=== PATIENT | male | born 1955 | race Caucasian/White ===

== ENCOUNTER 2021-02-26 09:04 | Day surgery (SDC) | payer BC ==
[~2021-02-26] VITALS: Ht 182.9 cm; Wt 88.8 kg
[~2021-02-26 09:04] MED LIST: Hytrin2 MG PO; ROSU10TA PO
--- NOTE | 2021-02-26 11:21 | NUR ---
02/26/21 1121 Medina Aguayo History, Chart, Medications and Allergies reviewed before start of procedure.PATIENT DETERMINED TO BE ASA APPROPRIATE FOR PROPOFOL SEDATION PRIOR TO START OF PROCEDURE BY .MONITOR INTACT WITH CONTINUOUS PULSE OXIMETRY AND INTERMITTENT BP.3-LEAD EKG REVIEWED WITH PHYSICIAN PRIOR TO START OF PROCEDURE.O2 VIA N/C INTACT THROUGHOUT SEDATION/PROCEDURE.
--- NOTE | 2021-02-26 11:37 | NUR ---
ALL BELONINGS RERUED TO PATIENT.Patient up to Ambulate independently. Gait steady. Discharge instructions reviewed with patient. Patient verbalizes understanding. Copy given to patient to take home. Patient States Post-Procedure ride home has been arranged. Discharged via wheelchair to private car for ride home.
== END 2021-02-26 23:19 | disposition home or self-care (01) ==
LOC: ORSCMMR 09:04 → ORD 10:00 → ORSCMMR 23:19
PROVIDERS: Internal Medicine Gastroenterology
PROC: 0DBN8ZX Excision of Sigmoid Colon, Via Natural or Artificial Opening Endoscopic, Diagnostic (ICD-10-PCS; principal; 2021-02-26 10:00)
PROC: 0DBM8ZX Excision of Descending Colon, Via Natural or Artificial Opening Endoscopic, Diagnostic (ICD-10-PCS; principal; 2021-02-26 10:00)
DX: Z86.010 Personal history of colon polyps (principal); D12.5 Benign neoplasm of sigmoid colon; D12.4 Benign neoplasm of descending colon; K64.8 Other hemorrhoids; E78.00 Pure hypercholesterolemia, unspecified; Z87.891 Personal history of nicotine dependence; Z79.899 Other long term (current) drug therapy
CPT/HCPCS: 88305; J2704; J7120

== ENCOUNTER 2024-01-27 18:54 | Inpatient (IN) | payer MEDICARE, BC ==
[~2024-01-27] VITALS: Ht 180.3 cm; Wt 94.4 kg
[2024-01-27 19:22] LABS: BASOPHILS ABSOLUTE AUTO 0.05 K/mm3 (0.00-0.23); BASOPHILS PERCENT AUTO 1 % (0-2); EOSINOPHILS PERCENT AUTO 3 % (0-6); Hematocrit 46.5 % (37.0-53.0); Hemoglobin 16.3 g/dL (13.5-17.5); IMMATURE GRAN ABSOLUTE AUTO 0.02 K/mm3 (0.00-0.10); IMMATURE GRAN PERCENT AUTO 0 % (0-1); LYMPHOCYTES ABSOLUTE AUTO 1.43 K/mm3 (0.84-5.20); LYMPHOCYTES PERCENT AUTO 24 % (21-46); MONOCYTES ABSOLUTE AUTO 0.48 K/mm3 (0.16-1.47); MONOCYTES PERCENT AUTO 8 % (4-13); Mean Corpuscular HGB 32.7 pg (26.0-34.0); Mean Corpuscular HGB Conc 35.1 g/dL (31.5-36.5); Mean Corpuscular Volume 93 fL (80-100); NEUTROPHILS ABSOLUTE AUTO 3.68 K/mm3 (1.96-9.15); NEUTROPHILS PERCENT AUTO 63 % (41-73); Platelet Count 156 K/mm3 (150-400); RDW Coefficient Variation 13.2 % (11.7-14.2); Red Blood Cell Count 4.99 M/mm3 (4.30-5.90); White Blood Cell Count 5.86 K/mm3 (4.00-11.30)
[2024-01-27 19:42] LABS: Albumin, Blood 3.7 g/dL (3.4-5.0); Albumin/Globulin Ratio 1.2 (0.8-1.8); Bilirubin, Total 0.6 mg/dL (0.1-1.0); Bun/Creatinine Ratio 20.9 (12.0-20.0); Calcium, Blood 9.4 mg/dL (8.5-10.1); Creatinine, Blood 0.91 mg/dL (0.60-1.20); Globulin, Blood 3.2 g/dL (2.2-4.0); Total Protein, Blood 6.9 g/dL (6.4-8.2)
[2024-01-27] MEDS ORDERED: Aspirin 325 MG Tab PO ONE (20:25)
[2024-01-27 21:13] LABS: Anti-Xa UFH, PHA Monitoring <0.10 IU/mL; International Normalized Ratio 1.02; Prothrombin Time Results 10.9 Sec (9.7-11.5)
[2024-01-27] MEDS ORDERED: Dose Adjust by Pharmacy XX STA (21:19)
[2024-01-27] MEDS ORDERED: Heparin Sodium 5000 Units/ML 1ML MDV IV ONE (21:20)
[2024-01-27] MEDS ORDERED: Heparin Sodium,Porcine/0.5 NS 500 ML IV SCH (21:20)
[2024-01-27] MEDS ORDERED: NS 1,000 ML IV SCH (22:00)
[2024-01-27] MEDS ORDERED: Metoprolol Tartrate 25 MG Tab PO SCH (22:01)
[2024-01-27] MEDS ORDERED: FLU VACC TS2024-25(6MOS UP)/PF 45 MCG/0.5 ML SYRINGE IM ONE (22:05)
[2024-01-27] MEDS ORDERED: Ondansetron HCl 2 MG / ML 2ML Vial IV PRN (22:05)
[2024-01-27] MEDS ORDERED: Acetaminophen 325 MG TABLET PO PRN (22:10)
[2024-01-27 23:15] VITALS: BP 146/90
[2024-01-27] MEDS ORDERED: OMEP20ER PO (23:40)
[2024-01-27] MEDS ORDERED: WIXELA 100-501 EAC1 (23:43)
[2024-01-28] VITALS (7 sets, daily range): BP systolic 103–119; BP diastolic 69–88
[2024-01-28] MEDS ORDERED: Insulin Human Lispro 100 Units/ML 3ML Syringe SC SCH
[2024-01-28 04:24] LABS: Hematocrit 44.2 % (37.0-53.0); Hemoglobin 15.4 g/dL (13.5-17.5); Mean Corpuscular HGB 33.4 pg (26.0-34.0); Mean Corpuscular HGB Conc 34.8 g/dL (31.5-36.5); Mean Corpuscular Volume 96 fL (80-100); Mean Platelet Volume 11.5 fL (9.1-12.4); Platelet Count 141 K/mm3 (150-400); RDW Coefficient Variation 13.1 % (11.7-14.2); RDW Standard Deviation 45.9 fL (35.1-46.3); Red Blood Cell Count 4.61 M/mm3 (4.30-5.90); White Blood Cell Count 5.87 K/mm3 (4.00-11.30)
[2024-01-28 04:52] LABS: Magnesium, Blood 2.1 mg/dL (1.6-2.4)
[2024-01-28 04:53] LABS: Bun/Creatinine Ratio 22.5 (12.0-20.0); Calcium, Blood 8.8 mg/dL (8.5-10.1); Creatinine, Blood 0.85 mg/dL (0.60-1.20)
--- NOTE | 2024-01-28 06:49 | NUR ---
PT REMAINS CP FREE SINCE ADMIT. NO C/O CP/SOB/LIGHTHEADEDNESS/DIZZINESS. PT REMAINS AOX4 AND INDEPENDENT IN ROOM. HEPARIN INFUSION CONTINUES W/O PROBLEM. IV FLUIDS ALSO CONTINUE TO INFUSE W/O PROBLEM. PT HAS HAD GOOD URINARY OUTPUT SINCE ADMIT. PT USES CALL LIGHT APPROPRIATE AND ABLE TO MAKE NEEDS KNOWN. TROPONINS HAVE INCREASED AND PHYSICIAN HAS BEEN MADE AWARE. PT VITAL SIGNS REMAIN STABLE, PT IS ON ROOM AIR.
[2024-01-28] MEDS ORDERED: Aspirin 81 MG Chew PO SCH (09:00)
[2024-01-28] MEDS ORDERED: Atorvastatin 40 MG Tab PO SCH (09:00)
[2024-01-28] MEDS ORDERED: Aspirin 325 MG Tab PO ONE (09:10)
[2024-01-28] MEDS ORDERED: NS 250 ML IV ONE (11:10)
[2024-01-28] MEDS ORDERED: Nitroglycerin 2 MG/20 ML BTL ONE (11:10)
[2024-01-28] MEDS ORDERED: NS 2,000 ML IV ONE (11:10)
[2024-01-28] MEDS ORDERED: Heparin Sodium 1000 Units/ML 10ML MDV ONE (11:10)
[2024-01-28] MEDS ORDERED: Verapamil HCL 2.5 MG/ML 2ML Injection ONE (11:10)
[2024-01-28] MEDS ORDERED: Dose Adjust by Pharmacy XX STA (11:13)
[2024-01-28] MEDS ORDERED: FentaNYL Citrate 50 MCG/ML 2 ML Injection ONE (11:30)
[2024-01-28] MEDS ORDERED: Midazolam HCl 1MG / ML 2ML Vial ONE (11:30)
--- NOTE | 2024-01-28 11:56 | NUR ---
NURSE NOTE PT OUT OF ROOM AT [facility]OV[facility] EDUCATION SPECIALIST AT THIS TIME.
--- NOTE | 2024-01-28 17:11 | NUR ---
NURSE NOTE PT COBRA TRANSFERED. PT VITALS TAKEN BEFORE LEAVING THE UNIT. PT LEFT W/ IV'S STILL IN SALINE LOCKED. PERSONAL BELONGINGS GATHERED AND SENT W/ PT. REPORT CALLED TO RECIEVING NURSE.
[2024-01-28] MEDS ORDERED: Doxazosin Mesylate 2 MG Tab PO SCH (21:00)
== END 2024-01-28 17:14 | disposition short-term general hospital (02) | DRG 282 ==
LOC: ER 18:54 → PCU 22:02
PROVIDERS: Emergency Medicine; Nurse Practitioner Acute Care; Student in an Organized Health Care Education/Training Program; ADMIT Student in an Organized Health Care Education/Training Program
PROC: 4A023N7 Measurement of Cardiac Sampling and Pressure, Left Heart, Percutaneous Approach (ICD-10-PCS; principal; 2024-01-28)
PROC: B2111ZZ Fluoroscopy of Multiple Coronary Arteries using Low Osmolar Contrast (ICD-10-PCS; 2024-01-28)
DX: I21.4 Non-ST elevation (NSTEMI) myocardial infarction (principal); I25.110 Atherosclerotic heart disease of native coronary artery with unstable angina pectoris; N40.0 Benign prostatic hyperplasia without lower urinary tract symptoms; I10 Essential (primary) hypertension; E78.00 Pure hypercholesterolemia, unspecified; G47.33 Obstructive sleep apnea (adult) (pediatric); R74.01 Elevation of levels of liver transaminase levels; R16.0 Hepatomegaly, not elsewhere classified; K76.0 Fatty (change of) liver, not elsewhere classified; E11.9 Type 2 diabetes mellitus without complications; Z79.899 Other long term (current) drug therapy; Z98.890 Other specified postprocedural states; Z87.891 Personal history of nicotine dependence
CPT/HCPCS: 36415; 71046; 76937; 80048; 80053; 82947; 83036; 83690; 83735; 84484; 85025; 85027; 85520; 85610; 85730; 93005; 93010; 93306; 93454; 94660; 94762; 96374; 96376; 99152; 99153; 99285-25; A9270; C1769; C1887; C1894; J1644; J2250; J3010; J7030; J7050; Q9967

== ENCOUNTER 2024-04-22 12:13 | Emergency (ER) | payer MEDICARE, BC ==
[~2024-04-22] VITALS: Ht 182.9 cm; Wt 97.5 kg
[~2024-04-22 12:13] MED LIST changes: +OMEP20ER PO; +WIXELA 100-501 EAC1
[2024-04-22] MEDS ORDERED: Ondansetron HCl 2 MG / ML 2ML Vial IV PRN (12:35)
[2024-04-22 13:09] LABS: BASOPHILS ABSOLUTE AUTO 0.05 K/mm3 (0.00-0.23); BASOPHILS PERCENT AUTO 1 % (0-2); EOSINOPHILS ABSOLUTE AUTO 0.25 K/mm3 (0.00-0.68); EOSINOPHILS PERCENT AUTO 4 % (0-6); Hematocrit 46.4 % (37.0-53.0); Hemoglobin 15.8 g/dL (13.5-17.5); IMMATURE GRAN ABSOLUTE AUTO 0.02 K/mm3 (0.00-0.10); IMMATURE GRAN PERCENT AUTO 0 % (0-1); LYMPHOCYTES ABSOLUTE AUTO 1.17 K/mm3 (0.84-5.20); LYMPHOCYTES PERCENT AUTO 19 % (21-46); MONOCYTES ABSOLUTE AUTO 0.89 K/mm3 (0.16-1.47); MONOCYTES PERCENT AUTO 15 % (4-13); Mean Corpuscular HGB Conc 34.1 g/dL (31.5-36.5); Mean Corpuscular Volume 94 fL (80-100); Mean Platelet Volume 10.9 fL (9.1-12.4); NEUTROPHILS ABSOLUTE AUTO 3.72 K/mm3 (1.96-9.15); NEUTROPHILS PERCENT AUTO 61 % (41-73); Platelet Count 171 K/mm3 (150-400); RDW Coefficient Variation 13.7 % (11.7-14.2); RDW Standard Deviation 47.4 fL (35.1-46.3); Red Blood Cell Count 4.94 M/mm3 (4.30-5.90)
[2024-04-22 13:44] LABS: Albumin, Blood 3.9 g/dL (3.4-5.0); Albumin/Globulin Ratio 1.1 (0.8-1.8); Bilirubin, Total 0.4 mg/dL (0.1-1.0); Bun/Creatinine Ratio 18.8 (12.0-20.0); Calcium, Blood 9.7 mg/dL (8.5-10.1); Creatinine, Blood 0.85 mg/dL (0.60-1.20); Globulin, Blood 3.4 g/dL (2.2-4.0); Potassium, Blood 4.5 mmol/L (3.5-5.5); Total Protein, Blood 7.3 g/dL (6.4-8.2)
[2024-04-22] MEDS ORDERED: ATOR40TA PO (15:18)
[2024-04-22] MEDS ORDERED: PLAVIX75 MG PO (15:18)
[2024-04-22] MEDS ORDERED: CLOBETASOL EMOL15 G1 (15:18)
[2024-04-22] MEDS ORDERED: METOPROLOL TART25 MG PO (15:19)
[2024-04-22] MEDS ORDERED: TAMSULOSIN HCL0.4 M1 PO (15:19)
[2024-04-22] MEDS ORDERED: Fluocinonide60 ML TP (15:19)
[2024-04-22] MEDS ORDERED: Amoxicillin875 MG PO (15:26)
[2024-04-22] MEDS ORDERED: BENZ100A PO (15:26)
[2024-04-22 15:30] VITALS: BP 133/87
[2024-04-22] MEDS ORDERED: Amoxicillin 875 MG Tab PO ONE (15:30)
== END 2024-04-22 15:55 | disposition home or self-care (01) ==
LOC: ER 12:13
PROVIDERS: Emergency Medicine
DX: J18.9 Pneumonia, unspecified organism (principal); E78.00 Pure hypercholesterolemia, unspecified; Z87.891 Personal history of nicotine dependence; Z79.02 Long term (current) use of antithrombotics/antiplatelets; Z79.899 Other long term (current) drug therapy
CPT/HCPCS: 71046; 80053; 83690; 83880; 84484; 85025; 93005; 93010; 99285-25; A9270